=== PATIENT | female | born 1980 | race Caucasian/White ===

== ENCOUNTER 2016-12-18 23:50 | Emergency (ER) | payer SELFPAY ==
[~2016-12-18] VITALS: Ht 157.5 cm; Wt 87.0 kg
[2016-12-19] MEDS ORDERED: HYDROCODONE/ACETAMINOPHEN 5/325MG TABLET PO ONE (03:00)
[2016-12-19] MEDS ORDERED: AMOXICILLIN 500 MG CAPSULE PO ONE (03:00)
[2016-12-19 03:07] VITALS: BP 147/89
== END 2016-12-19 03:20 | disposition home or self-care (01) ==
LOC: ER 23:50
DX: K04.7 Periapical abscess without sinus (principal)
CPT/HCPCS: 99283